=== PATIENT | male | born 2000 | race Caucasian/White ===

== ENCOUNTER 2021-02-15 17:03 | Emergency (ER) | payer BC ==
[~2021-02-15] VITALS: Ht 177.8 cm; Wt 65.8 kg
[2021-02-15 19:09] VITALS: BP 97/61
[2021-02-15] MEDS ORDERED: ALPRAZOLAM 0.50.5 M1 PO (19:31)
[2021-02-15] MEDS ORDERED: AMPHETAMINE SAL30 MG PO (19:31)
== END 2021-02-15 19:31 | disposition home or self-care (01) ==
LOC: ER 17:03
DX: T78.40XA Allergy, unspecified, initial encounter (principal); Z88.0 Allergy status to penicillin; Z91.018 Allergy to other foods; Y92.89 Other specified places as the place of occurrence of the external cause